=== PATIENT | male | born 1960 | race African-American/Black ===

== ENCOUNTER 2025-02-12 10:49 | Emergency (ER) | payer MEDICAID ==
[~2025-02-12] VITALS: Ht 170.2 cm; Wt 91.0 kg
[2025-02-12 10:55] VITALS: PULSE 94; O2SAT 99
[2025-02-12 10:56] VITALS: BP 165/113; RESP 18; TEMP 36.9; O2SAT 98
[2025-02-12 11:32] LABS: BASOPHILS % 0.8 % (0.0-2.0); EOSINOPHILS % 1.1 % (0.0-5.0); HEMATOCRIT. 50.5 % (42.0-52.0); HEMOGLOBIN. 16.8 g/dL (14.0-18.0); LYMPHOCYTES % 26.1 % (20.0-50.0); MEAN PLATELET VOLUME 8.4 fl (7.4-10.4); MONOCYTES % 11.5 % (2.0-8.0); NEUTROPHILS % 60.5 % (40.0-76.0); PLATELET 230 x1000/uL (130-400); RED BLOOD CELL COUNT 6.10 mill/uL (4.7-6.1); RED CELL DISTRIBUTION WIDTH 14.1 % (11.6-14.6)
[2025-02-12 11:46] LABS: CREATININE 1.3 mg/dL (0.6-1.3); UREA NITROGEN BLOOD 15 mg/dL (9-23)
[2025-02-12 11:54] LABS: TROPONIN I HIGH SENSITIVITY 99 ng/L (3.0-53)
[2025-02-12] MEDS ORDERED: ASPIRIN 325MG TABLET PO ONE (12:00)
[2025-02-12] MEDS ORDERED: HYDROCODONE/ACETAMINOPHEN 5/325MG TABLET PO PRN (14:15)
[2025-02-12] MEDS ORDERED: CLONIDINE 0.1MG TABLET PO PRN (14:15)
[2025-02-12] MEDS ORDERED: MAGNESIUM/ALUMINUM HYDROXIDE/SIMETHICONE 30ML UDC PO PRN (14:15)
[2025-02-12] MEDS ORDERED: IPRATROPIUM/ALBUTEROL 0.5-3(2.5)MG/3ML NEB NEB PRN (14:15)
[2025-02-12] MEDS ORDERED: ONDANSETRON HCL 4MG/2ML INJ IV PRN (14:15)
[2025-02-12] MEDS ORDERED: ACETAMINOPHEN 325MG TABLET PO PRN (14:15)
[2025-02-12] MEDS ORDERED: NALOXONE HCL 0.4MG/ML VIAL IV PRN (14:45)
[2025-02-12] MEDS ORDERED: ATORVASTATIN CALCIUM 20MG TABLET PO SCH (21:00)
[2025-02-12] MEDS ORDERED: ENOXAPARIN 30MG/0.3ML SYR SUBCUT SCH (21:00)
[2025-02-13] MEDS ORDERED: PANTOPRAZOLE SODIUM 40 MG/VIAL IV SCH (09:00)
[2025-02-13] MEDS ORDERED: ASPIRIN 81MG EC TABLET PO SCH (09:00)
== END 2025-02-12 15:40 | disposition left against medical advice (07) ==
LOC: ER 10:49 → EDBEDREQTM 13:16 → EDBEDREQ 13:16 → ENRESERV 13:56 → CANRESERV 13:56 → ER 15:40 → CANBEDREQ 15:41
DX: R07.89 Other chest pain (principal); R79.89 Other specified abnormal findings of blood chemistry; R00.2 Palpitations; I25.2 Old myocardial infarction; I10 Essential (primary) hypertension; Z98.890 Other specified postprocedural states
CPT/HCPCS: 36415; 71045; 80048; 84484; 85025; 93005; 99291